=== PATIENT | male | born 1960 | race Caucasian/White ===

== ENCOUNTER 2018-04-28 16:26 | Emergency (ER) | payer OTHER ==
[2018-04-28 16:36] VITALS: BP 124/73; PULSE 91; TEMP 98.5; BMI 30.2
[2018-04-28] MEDS ORDERED: IBUPROFEN 400 MG TABLET (FP) PO ONE ×2 (17:34→17:55)
--- NOTE | 2018-04-28 18:13 | PDOC ---
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 He says that he twisted his knee and his ankle and has been in pain since. no other complaints today, no other injury, no numbness/tingling, no weakness, no sensory deficits, no head injury. ABle to ambulate 04/28/18 19:21 Past History - Past Medical History Allergies/Adverse Reactions: Allergies Allergy/AdvReac Type Severity Reaction Status Date / Time No Known Allergies Allergy Verified 04/28/18 16:33 Home Medications: Ambulatory Orders Cyclobenzaprine HCl [Flexeril -] 10 mg PO TID #9 tablet 03/12/16 Ibuprofen [Motrin -] 800 mg PO Q6H #30 tablet 03/12/16 Methocarbamol [Robaxin-750] 750 mg PO TID 3 Days #15 tablet 04/28/18 Naproxen 375 mg PO TID 3 Days #15 tablet 04/28/18 COPD: No - Surgical History Abdominal Surgery: Yes (hernia) - Immunization History Immunization Up to Date: Yes - Suicide/Smoking/Psychosocial Hx Smoking History: Never smoked Have you smoked in the past 12 months: No Hx Alcohol Use: No Drug/Substance Use Hx: No Substance Use Type: None Hx Substance Use Treatment: No Review of Systems - Review of Systems Able to Perform ROS?: Yes Constitutional: No: Chills, Fever, Malaise, Night Sweats HEENTM: No: Eye Pain, Recent change in vision, Throat Pain Respiratory: No: Cough, Shortness of Breath Cardiac (ROS): No: Chest Pain, Palpitations, Chest Tightness ABD/GI: No: Diarrhea, Nausea, Vomiting, Abdominal cramping : No: Dysuria, Hematuria Musculoskeletal: No: Back Pain Integumentary: No: Rash Neurological: No: Headache, Numbness, Dizziness Psychiatric: No: Change in Appetite Endocrine: No: Unexplained Weight Loss *Physical Exam - Vital Signs Last Vital Signs Temp Pulse Resp BP Pulse Ox 98.5 F 91 H 16 124/73 95 04/28/18 16:34 04/28/18 16:34 04/28/18 16:34 04/28/18 16:34 04/28/18 16:34 - Physical Exam General Appearance: Yes: Nourished. No: Apparent Distress HEENT: positive: LUIS, Normal ENT Inspection, Normal Voice. negative: Pale Conjunctivae, Scleral Icterus (R), Scleral Icterus (L) Neck: positive: Supple. negative: Decreased range of motion, Tender midline Respiratory/Chest: positive: Lungs Clear, Normal Breath Sounds. negative: Respiratory Distress, Accessory Muscle Use Cardiovascular: positive: Regular Rhythm, Regular Rate Gastrointestinal/Abdominal: positive: Normal Bowel Sounds, Soft. negative: Tender Musculoskeletal: positive: Normal Inspection, Other. negative: CVA Tenderness, Decreased Range of Motion Extremity: positive: Normal Capillary Refill, Normal Inspection, Normal Range of Motion, Other (b/l LEs with no skin changes. RLE with FROM at R knee and ankle, mild tenderness posteriorly to lateral malleolus and R knee medially, able to straight leg raise, no fibula head tenderness 5/5 strength to R knee/ ankle/foot. Good cap refill. Equal pulses. NVI. ). negative: Tender, Delayed Capillary Refill, Pedal Edema, Swelling, Erythema Integumentary: positive: Normal Color, Dry. negative: Jaundice, Rash Neurologic: positive: Fully Oriented, Alert, Normal Mood/Affect Moderate Sedation - Procedure Monitoring Vital Signs: Procedure Monitoring Vital Signs Temperature 98.5 F 04/28/18 16:34 Pulse Rate 91 H 04/28/18 16:34 Respiratory Rate 16 04/28/18 16:34 Blood Pressure 124/73 04/28/18 16:34 O2 Sat by Pulse Oximetry (%) 95 04/28/18 16:34 ED Treatment Course - RADIOLOGY Radiology Studies Ordered: Category Date Time Status ANKLE & FOOT-RIGHT* [RAD] Stat Radiology 04/28/18 17:34 Taken KNEE 3 POS-RIGHT [RAD] Stat Radiology 04/28/18 17:34 Taken - Medications Given in the ED: ED Medications Discontinued Medications Generic Name Dose Route Start Last Admin Trade Name Freq PRN Reason Stop Dose Admin Ibuprofen 800 mg 04/28/18 17:34 04/28/18 18:01 Motrin - PO 04/28/18 17:35 800 mg ONCE ONE Administration Medical Decision Making - Medical Decision Making 04/28/18 18:13 57 yo M w/ R knee/ankle/foot injury. Ambulating without need for assistance. WIll do knee/ankle/foot xrays, give NSAIDs, robaxin and if xrays negative, will discharge with PMD/ortho follow up. Pt declines Cristopher wrap. RICE Return for worsening/concerning symptoms Pt verbalizes understanding and agrees with plan *DC/Admit/Observation/Transfer Diagnosis at time of Disposition: Injury of ankle and foot Qualifiers: Encounter type: initial encounter Laterality: left Qualified Code(s): S99.912A - Unspecified injury of left ankle, initial encounter - Prescriptions Prescriptions: Methocarbamol [Robaxin-750] 750 mg PO TID 3 Days #15 tablet Naproxen 375 mg PO TID 3 Days #15 tablet - Referrals - Patient Instructions Printed Discharge Instructions: DI for Ankle Sprain Additional Instructions: Rest and apply ice for the first 48 hours. After 48hours you may apply warm compresses. Follow up with your PCP in 1-2 days and with your orthopedist as needed. Return for worsening/concerning symptoms - Post Discharge Activity
== END 2018-04-28 18:38 | disposition home or self-care (01) ==
LOC: JER 16:26 → JERFT 16:26 → JER 18:38
DX: S89.81XA Other specified injuries of right lower leg, initial encounter (principal); W01.0XXA Fall on same level from slipping, tripping and stumbling without subsequent striking against object, initial encounter; Y93.89 Activity, other specified; Y92.038 Other place in apartment as the place of occurrence of the external cause; X02.8XXA Other exposure to controlled fire in building or structure, initial encounter; Y99.0 Civilian activity done for income or pay
CPT/HCPCS: 73562-TC-RT-FY; 73610-TC-RT-FY; 73630-TC-RT-FY; 99281-25

== ENCOUNTER 2019-05-11 12:33 | Emergency (ER) | payer OTHER ==
[2019-05-11 12:47] VITALS: BP 112/63; PULSE 65; TEMP 97.8; BMI 28.7
[2019-05-11] MEDS ORDERED: IBUPROFEN 400 MG TABLET (FP) PO ONE ×2 (12:55→13:11)
--- NOTE | 2019-05-11 12:57 | PDOC ---
History of Present Illness - General Chief Complaint: Pain, Acute Stated Complaint: KNEE PAIN Time Seen by Provider: 05/11/19 12:51 History Source: Patient - History of Present Illness Occurred: reports: this morning Lower Extremity Pain Location: right: knee Method of Injury: Yes: twisted Past History - Past Medical History Allergies/Adverse Reactions: Allergies Allergy/AdvReac Type Severity Reaction Status Date / Time No Known Allergies Allergy Verified 04/28/18 16:33 Home Medications: Ambulatory Orders Cyclobenzaprine HCl [Flexeril -] 10 mg PO TID #9 tablet 03/12/16 Ibuprofen [Motrin -] 800 mg PO Q6H #30 tablet 03/12/16 Methocarbamol [Robaxin-750] 750 mg PO TID 3 Days #15 tablet 04/28/18 Naproxen 375 mg PO TID 3 Days #15 tablet 04/28/18 COPD: No - Surgical History Abdominal Surgery: Yes (hernia) - Immunization History Immunization Up to Date: Yes - Psycho Social/Smoking Cessation Hx Smoking History: Never smoked Have you smoked in the past 12 months: No Information on smoking cessation initiated: No Hx Alcohol Use: No Drug/Substance Use Hx: No Substance Use Type: None Hx Substance Use Treatment: No Review of Systems - Review of Systems Musculoskeletal: Yes: Joint Pain. No: Joint Swelling *Physical Exam - Vital Signs Last Vital Signs Temp Pulse Resp BP Pulse Ox 97.8 F 65 16 112/63 98 05/11/19 12:44 05/11/19 12:44 05/11/19 12:44 05/11/19 12:44 05/11/19 12:44 - Physical Exam General Appearance: Yes: Appropriately Dressed. No: Apparent Distress HEENT: positive: Normal Voice Neck: positive: Supple Respiratory/Chest: negative: Respiratory Distress Extremity: positive: Normal Inspection, Normal Range of Motion. 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 States this morning while getting off a stepladder he twisted his right knee. No fall. Able to bear weight but slightly uncomfortable. Has not taken anything for pain. Patient well- appearing and stable with unremarkable exam. Dose of Motrin given here. DC with Ortho follow-up as needed Discharge - Discharge Information Problems reviewed: Yes Clinical Impression/Diagnosis: Knee strain Qualifiers: Encounter type: initial encounter Laterality: right Qualified Code(s): S86.911A - Strain of unspecified muscle(s) and tendon(s) at lower leg level, right leg, initial encounter Condition: Stable Disposition: HOME - Follow up/Referral Referrals: Dagoberto Nunez MD [Staff Physician] - - Patient Discharge Instructions Patient Printed Discharge Instructions: DI for Knee Sprain Additional Instructions: Take Motrin as needed for pain and follow-up with orthopedics if pain persist after 2 weeks - Post Discharge Activity
== END 2019-05-11 13:15 | disposition home or self-care (01) ==
LOC: JERFT 12:33
DX: S86.811A Strain of other muscle(s) and tendon(s) at lower leg level, right leg, initial encounter (principal); X50.1XXA Overexertion from prolonged static or awkward postures, initial encounter; Y93.89 Activity, other specified; Y92.29 Other specified public building as the place of occurrence of the external cause; Y99.0 Civilian activity done for income or pay
CPT/HCPCS: 99281-25